=== PATIENT | male | born 1980 | race Hispanic/Latino ===

== ENCOUNTER 2022-06-28 10:35 | Emergency (ER) | payer OTHER ==
[~2022-06-28] VITALS: Ht 165.1 cm; Wt 77.1 kg
[2022-06-28 11:40] LABS: APPEARANCE,URINE CLEAR (CLEAR); BILIRUBIN,URINE NEGATIVE (NEGATIVE); COLOR,URINE COLORLESS (YELLOW); GLUCOSE, URINE (UA) NEGATIVE (NEGATIVE); KETONES,URINE NEGATIVE (NEGATIVE); LEUKOCYTE ESTERASE ,URINE NEGATIVE Leu/uL (NEGATIVE); NITRATE,URINE NEGATIVE (NEGATIVE); OCCULT BLOOD,URINE NEGATIVE (NEGATIVE); PH,URINE 6.5 (5.0-8.0); PROTEIN,URINE NEGATIVE (NEGATIVE); UROBILINOGEN,URINE 0.2 mg/dL (0.2-1.0)
[2022-06-28] MEDS ORDERED: TETRACAINE HCL 0.5% 4 ML OPHTH SOLN ONE (13:00)
[2022-06-28] MEDS ORDERED: CORTSOL AD (13:39)
[2022-06-28 14:07] VITALS: BP 123/78
== END 2022-06-28 14:09 | disposition home or self-care (01) ==
LOC: EDH 10:35
DX: H60.92 Unspecified otitis externa, left ear (principal); R19.7 Diarrhea, unspecified; R30.0 Dysuria; R10.9 Unspecified abdominal pain; F12.90 Cannabis use, unspecified, uncomplicated; F17.210 Nicotine dependence, cigarettes, uncomplicated
CPT/HCPCS: 81003

== ENCOUNTER 2022-11-02 05:10 | Emergency (ER) | payer BC ==
[~2022-11-02] VITALS: Ht 165.1 cm; Wt 82.1 kg
[~2022-11-02 05:10] MED LIST: CORTSOL AD; DIPH1POW20 PO; FAMO-136 PO; IBUP-2070 PO
[2022-11-02] MEDS ORDERED: CYCL-309 PO (05:40)
[2022-11-02] MEDS ORDERED: IBUP-1493 PO (05:40)
[2022-11-02 05:44] LABS: BASOPHILS % (AUTO) 0.3 % (0.0-5.0); EOSINOPHILS % (AUTO) 1.9 % (0.0-8.0); HEMATOCRIT 40.1 % (42-54); LYMPHOCYTES % (AUTO) 17.6 % (21.0-51.0); MEAN CORPUSCULAR HEMOGLOBIN 32.4 pg (27.0-33.0); MEAN CORPUSCULAR HGB CONC 35.7 g/dL (32.0-36.0); MEAN CORPUSCULAR VOLUME 90.9 fL (79-99); MONOCYTES % (AUTO) 7.3 % (3.0-13.0); NEUTROPHILS % (AUTO) 72.8 % (40.0-77.0); PLATELET COUNT (AUTO) 183 K/uL (130-400); RED BLOOD CELL COUNT(AUTO) 4.41 MIL/uL (4.50-6.20); RED CELL DISTRIBUTION WIDTH 12.2 % (11.0-15.5); WHITE BLOOD COUNT (AUTO) 6.8 K/uL (4.8-10.8)
[2022-11-02 05:54] LABS: CREATININE 0.8 mg/dL (0.5-1.5); POTASSIUM 3.5 mmol/L (3.5-5.1)
[2022-11-02 06:01] LABS: TOTAL PROTEIN, SERUM 6.8 g/dL (6.0-8.3)
[2022-11-02] MEDS ORDERED: IOHEXOL 350 MG/ML 100ML INFUS..BTL IV ONE (06:38)
[2022-11-02 07:42] VITALS: BP 142/87
[2022-11-02] MEDS ORDERED: TRAM50TA4 PO (07:59)
[2022-11-02] MEDS ORDERED: BENZONATATE 100 MG CAPSULE PO SCH (08:00)
== END 2022-11-02 08:16 | disposition home or self-care (01) ==
LOC: EDH 05:10
DX: R07.89 Other chest pain (principal); Z79.899 Other long term (current) drug therapy; Z98.890 Other specified postprocedural states
CPT/HCPCS: 99284; 71270; 84484; 80053; 83880; 85025; 85378; 36415; 93005; Q9967

== ENCOUNTER 2023-09-05 17:47 | Emergency (ER) | payer BC, OTHER ==
[~2023-09-05] VITALS: Ht 170.2 cm; Wt 72.6 kg
[~2023-09-05 17:47] MED LIST changes: +CYCL-309 PO; +IBUP-1493 PO; +TRAM50TA4 PO
[2023-09-05 18:32] VITALS: BP 161/74; PULSE 76
[2023-09-05 18:37] LABS: APPEARANCE,URINE CLEAR (CLEAR); BILIRUBIN,URINE NEGATIVE (NEGATIVE); COLOR,URINE COLORLESS (YELLOW); GLUCOSE, URINE (UA) NEGATIVE (NEGATIVE); KETONES,URINE NEGATIVE (NEGATIVE); LEUKOCYTE ESTERASE ,URINE NEGATIVE Leu/uL (NEGATIVE); NITRATE,URINE NEGATIVE (NEGATIVE); OCCULT BLOOD,URINE NEGATIVE (NEGATIVE); PH,URINE 6.5 (5.0-8.0); PROTEIN,URINE NEGATIVE (NEGATIVE); UROBILINOGEN,URINE 0.2 mg/dL (0.2-1.0)
[2023-09-05 18:39] LABS: ADD UA MICROSCOPIC YES
[2023-09-05 18:40] LABS: MUCUS,URINE RARE LPF (None Seen); RBC,URINE 0-1 /HPF (0-1); UNCLASSIFIED CRYSTAL 2 /HPF (None Seen); WBC,URINE 0-1 /HPF (0-1)
[2023-09-05 21:58] LABS: BASOPHILS # (AUTO) 0.04 K/uL (0.00-0.20); BASOPHILS % (AUTO) 0.5 % (0.0-5.0); EOSINOPHILS # (AUTO) 0.24 K/uL (0.00-0.70); EOSINOPHILS % (AUTO) 2.7 % (0.0-8.0); HEMATOCRIT 44.5 % (42-54); IMMATURE GRANULOCYTE ABSOLUTE 0.02 K/uL (0-1); LYMPHOCYTES # (AUTO) 2.9 K/uL (1.0-4.8); LYMPHOCYTES % (AUTO) 32.5 % (21.0-51.0); MEAN CORPUSCULAR HEMOGLOBIN 33.7 pg (27.0-33.0); MEAN CORPUSCULAR HGB CONC 36.6 g/dL (32.0-36.0); MEAN CORPUSCULAR VOLUME 91.9 fL (79-99); MONOCYTES # (AUTO) 0.8 K/uL (0.1-1.0); MONOCYTES % (AUTO) 8.9 % (3.0-13.0); NEUTROPHILS # (AUTO) 4.9 K/uL (1.8-7.7); NEUTROPHILS % (AUTO) 55.2 % (40.0-77.0); PLATELET COUNT (AUTO) 193 K/uL (130-400); RED BLOOD CELL COUNT(AUTO) 4.84 MIL/uL (4.50-6.20); RED CELL DISTRIBUTION WIDTH 12.3 % (11.0-15.5); WHITE BLOOD COUNT (AUTO) 8.8 K/uL (4.8-10.8)
[2023-09-05] MEDS: 0.9%NACL 1000ML 1,000 ML IV ONE (22:03)
[2023-09-05] MEDS: KETOROLAC 30MG VIAL (30MG/ML) IVP ONE (22:03)
[2023-09-05 22:07] VITALS: RESP 18; O2SAT 100
[2023-09-05 22:12] LABS: CREATININE 0.9 mg/dL (0.5-1.5); POTASSIUM 3.4 mmol/L (3.5-5.1)
[2023-09-05 22:18] LABS: ALBUMIN 3.9 g/dL (3.5-5.0); BILIRUBIN,TOTAL 0.9 mg/dL (0.2-1.0); TOTAL PROTEIN, SERUM 6.8 g/dL (6.0-8.3)
[2023-09-05 22:24] LABS: RAPID GROUP A STREP negative (NEGATIVE)
[2023-09-05 22:34] LABS: COVID19 (SARS ANTIGEN RAPID) PRESUMPTIVE NEGATIVE (NEGATIVE)
[2023-09-05 22:56] LABS: INFLUENZA TYPE A NEGATIVE FOR TYPE A (NEGATIVE)
[2023-09-05 22:57] LABS: INFLUENZA TYPE B NEGATIVE FOR TYPE B (NEGATIVE)
== END 2023-09-05 23:37 | disposition home or self-care (01) ==
LOC: EDH 17:47
DX: L55.9 Sunburn, unspecified (principal); E86.0 Dehydration; F17.200 Nicotine dependence, unspecified, uncomplicated; Z20.822 Contact with and (suspected) exposure to COVID-19; Z79.899 Other long term (current) drug therapy; Z98.890 Other specified postprocedural states
CPT/HCPCS: 99284; 96374; 87426; 80053; 85025; 87880; 87804 ×2; 81001; 36415; J7030; J1885

== ENCOUNTER 2023-12-26 03:04 | Emergency (ER) | payer OTHER ==
[~2023-12-26] VITALS: Ht 165.1 cm; Wt 81.6 kg
[2023-12-26 03:24] LABS: BASOPHILS # (AUTO) 0.03 K/uL (0.00-0.20); BASOPHILS % (AUTO) 0.3 % (0.0-5.0); EOSINOPHILS # (AUTO) 0.13 K/uL (0.00-0.70); EOSINOPHILS % (AUTO) 1.4 % (0.0-8.0); HEMATOCRIT 39.9 % (42-54); IMMATURE GRANULOCYTE ABSOLUTE 0.03 K/uL (0-1); LYMPHOCYTES # (AUTO) 2.5 K/uL (1.0-4.8); LYMPHOCYTES % (AUTO) 26.1 % (21.0-51.0); MEAN CORPUSCULAR HEMOGLOBIN 32.5 pg (27.0-33.0); MEAN CORPUSCULAR HGB CONC 36.8 g/dL (32.0-36.0); MEAN CORPUSCULAR VOLUME 88.1 fL (79-99); MONOCYTES # (AUTO) 0.9 K/uL (0.1-1.0); MONOCYTES % (AUTO) 9.3 % (3.0-13.0); NEUTROPHILS % (AUTO) 62.6 % (40.0-77.0); PLATELET COUNT (AUTO) 228 K/uL (130-400); RED BLOOD CELL COUNT(AUTO) 4.53 MIL/uL (4.50-6.20); RED CELL DISTRIBUTION WIDTH 12.5 % (11.0-15.5); WHITE BLOOD COUNT (AUTO) 9.5 K/uL (4.8-10.8)
[2023-12-26 03:33] LABS: CREATININE 0.9 mg/dL (0.5-1.3); POTASSIUM 3.2 mmol/L (3.5-5.1)
[2023-12-26 03:37] LABS: ALBUMIN 4.5 g/dL (3.5-5.0); BILIRUBIN,TOTAL 1.7 mg/dL (0.2-1.0); TOTAL PROTEIN, SERUM 7.4 g/dL (6.0-8.3)
[2023-12-26 03:48] LABS: B-TYPE NATRIURETIC PEPTIDE < 5 pg/mL (0-100)
[2023-12-26] MEDS: LORAZEPAM 0.5 MG TABLET PO ONE (04:26)
[2023-12-26] MEDS: KCL 20 MEQ ERTAB PO ONE ×2 (06:53)
[2023-12-26 07:02] VITALS: BP 129/70; PULSE 62; RESP 14; O2SAT 98
== END 2023-12-26 07:05 | disposition home or self-care (01) ==
LOC: EDH 03:04
DX: F41.9 Anxiety disorder, unspecified (principal); F14.10 Cocaine abuse, uncomplicated; F17.200 Nicotine dependence, unspecified, uncomplicated; Z79.1 Long term (current) use of non-steroidal anti-inflammatories (NSAID)
CPT/HCPCS: 36415; 71045; 80053; 83880; 84484; 85025; 93005

== ENCOUNTER 2024-03-07 00:24 | Emergency (ER) | payer SELFPAY ==
[~2024-03-07] VITALS: Ht 165.1 cm; Wt 81.6 kg
[2024-03-07 01:09] LABS: BASOPHILS # (AUTO) 0.05 K/uL (0.00-0.20); BASOPHILS % (AUTO) 0.5 % (0.0-5.0); EOSINOPHILS # (AUTO) 0.05 K/uL (0.00-0.70); EOSINOPHILS % (AUTO) 0.5 % (0.0-8.0); IMMATURE GRANULOCYTE ABSOLUTE 0.03 K/uL (0-1); LYMPHOCYTES % (AUTO) 20.4 % (21.0-51.0); MEAN CORPUSCULAR HEMOGLOBIN 32.9 pg (27.0-33.0); MEAN CORPUSCULAR VOLUME 88.9 fL (79-99); NEUTROPHILS # (AUTO) 6.8 K/uL (1.8-7.7); NEUTROPHILS % (AUTO) 68.3 % (40.0-77.0); PLATELET COUNT (AUTO) 214 K/uL (130-400); RED BLOOD CELL COUNT(AUTO) 4.95 MIL/uL (4.50-6.20); RED CELL DISTRIBUTION WIDTH 12.5 % (11.0-15.5); WHITE BLOOD COUNT (AUTO) 9.9 K/uL (4.8-10.8)
[2024-03-07 01:29] LABS: AMPHET/METH SCREEN,URINE NEGATIVE (NEGATIVE); BARBITURATE SCREEN, URINE NEGATIVE (NEGATIVE); BENZODIAZEPINES SCREEN,URINE POSITIVE (NEGATIVE); CANNABINOID SCREEN,URINE POSITIVE (NEGATIVE); COCAINE SCREEN,URINE POSITIVE (NEGATIVE); OPIATE SCREEN,URINE NEGATIVE (NEGATIVE); PHENCYCLIDINE SCREEN,URINE NEGATIVE (NEGATIVE)
[2024-03-07] MEDS: ONDANSETRON 4MG INJ IVP ONE (01:30)
[2024-03-07] MEDS: LACTATED RINGERS 1000ML 1,000 ML IV ONE (01:30)
[2024-03-07] MEDS: PANTOPRAZOLE 40 MG/VIAL IVP ONE (01:31)
[2024-03-07 02:08] LABS: POTASSIUM 3.3 mmol/L (3.5-5.1)
[2024-03-07 02:24] VITALS: BP 122/70; PULSE 63; RESP 18; O2SAT 97
== END 2024-03-07 03:09 | disposition home or self-care (01) ==
LOC: EDH 00:24
DX: F19.10 Other psychoactive substance abuse, uncomplicated (principal); F41.9 Anxiety disorder, unspecified; F17.200 Nicotine dependence, unspecified, uncomplicated; Z79.899 Other long term (current) drug therapy; Z98.890 Other specified postprocedural states
CPT/HCPCS: 99284; 96374; 96361; 96375; 82550; 84484; 80048; 80305; 83690; 85025; 36415; 93005; J7120; J2405; J2470

== ENCOUNTER 2024-05-04 13:55 | Emergency (ER) | payer SELFPAY ==
[~2024-05-04] VITALS: Ht 165.1 cm; Wt 81.6 kg
[2024-05-04 13:56] VITALS: BP 123/57; PULSE 63; RESP 16; TEMP 97.6
[2024-05-04 14:40] LABS: BASOPHILS # (AUTO) 0.02 K/uL (0.00-0.20); BASOPHILS % (AUTO) 0.3 % (0.0-5.0); EOSINOPHILS # (AUTO) 0.26 K/uL (0.00-0.70); EOSINOPHILS % (AUTO) 3.6 % (0.0-8.0); HEMATOCRIT 34.9 % (42-54); IMMATURE GRANULOCYTE ABSOLUTE 0.02 K/uL (0-1); LYMPHOCYTES # (AUTO) 1.8 K/uL (1.0-4.8); LYMPHOCYTES % (AUTO) 25.1 % (21.0-51.0); MEAN CORPUSCULAR HEMOGLOBIN 32.2 pg (27.0-33.0); MEAN CORPUSCULAR HGB CONC 36.4 g/dL (32.0-36.0); MEAN CORPUSCULAR VOLUME 88.6 fL (79-99); MONOCYTES # (AUTO) 0.6 K/uL (0.1-1.0); MONOCYTES % (AUTO) 8.1 % (3.0-13.0); NEUTROPHILS # (AUTO) 4.5 K/uL (1.8-7.7); NEUTROPHILS % (AUTO) 62.6 % (40.0-77.0); PLATELET COUNT (AUTO) 179 K/uL (130-400); RED BLOOD CELL COUNT(AUTO) 3.94 MIL/uL (4.50-6.20); RED CELL DISTRIBUTION WIDTH 12.5 % (11.0-15.5); WHITE BLOOD COUNT (AUTO) 7.2 K/uL (4.8-10.8)
[2024-05-04 14:49] LABS: POTASSIUM 3.1 mmol/L (3.5-5.1)
[2024-05-04] MEDS: PoTASSium BIcarbonate/CIT AC 25 MEQ TABLET.EFF PO ONE (15:56)
[2024-05-04] MEDS: 0.9%NACL 1000ML 1,000 ML IV ONE ×2 (15:57→17:24)
== END 2024-05-04 18:51 | disposition home or self-care (01) ==
LOC: EDH 13:55
DX: R74.8 Abnormal levels of other serum enzymes (principal); E86.0 Dehydration; E87.6 Hypokalemia; I10 Essential (primary) hypertension; F17.200 Nicotine dependence, unspecified, uncomplicated; Z79.1 Long term (current) use of non-steroidal anti-inflammatories (NSAID)
CPT/HCPCS: 99284; 96360; 96361; 82550 ×2; 84484; 80048; 85025; 36415; 93005; J7030